=== PATIENT | female | born 1980 | race Caucasian/White ===

== ENCOUNTER 2023-11-28 10:11 | Day surgery (SDC) | payer OTHER, SELFPAY ==
[2023-11-28] MEDS: LACTATED RINGERS 1,000 ML 42 ML IV ×2 (11:35→14:29)
[2023-11-28] MEDS: TRAMADOL 50 MG TABLET PO (11:37)
[2023-11-28 11:48] VITALS: BMI 30.7
--- NOTE | 2023-11-28 11:52 | PM.PREOP ---
Pre-operative Note Interval Note History & Physical reviewed/Exam performed by Physician: Yes Changes to H&P: No
--- NOTE | 2023-11-28 11:53 | PM.OP.1 ---
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 Conservative measures failed to alleviate her condition and she wished to have surgical intervention at this time. We spoke with the risks and potential complications as well as expected outcomes of the proposed procedures. In the preoperative holding area we also reviewed again some options which we had talked about last week in the clinic. After further discussion she desired to not have a takedown of the arthrodesis of the 2nd toe and understands that the flexor tendon transfer would not performed at this time due to difficulty of accessing without these takedowns. Alternative attempts at alignment and strengthening of the toe's plantarflexion will be performed as discussed and she consented, if needed, for a k-wire temporary placement through the toe to be removed in the month following the procedure. Also, use of bandaging, splinting, and therapy techniques are options to help this. She voiced understanding and consent was reviewed once again. No contraindications to the procedure at this time. Surgeon: Ghazala Hsieh Click Yes if Unassisted: No Anesthesia Type: General Operative Notes Closure Type: primary Specimen(s): none sent Prosthetic devices, grafts, tissues, transplants, or devices: 0.054 k-wire Estimated Blood Loss (mL): 20 Blood products transfused: none Procedure in detail: The patient was brought to the operating room and placed on the operating table in the supine position. The tourniquet was placed about the right thigh, well padded, appropriately aligned. After induction of general anesthesia the right foot was prepped and local anesthesia using the recorded injectables was obtained to the the region of the right second toe area. The right foot and ankle were prepped and draped in the usual aseptic manner. The tourniquet was inflated. Incision was made over the dorsal second proximal phalanx extending proximal to the second metatarsophalangeal joint. This was done in a z-type formation at the central aspect and then proximal arm was elongated further proximally. The incision was deepened through subcutaneous tissues being careful to identify and retract all vital neural and vascular structures. All bleeders were cauterized and ligated as necessary. This immediately showed a good deal of scar tissue of the extensor tendon onto the joint capsule and the senior electrical estimator bones. Also there was tightness and scarring at the capsule itself of the metatarsophalangeal joint. I removed two small undissolved sutures in the area and their scar tissue dorsolaterally. I carefully freed the extensor from the tissue it scarred to. Once I did that and released the metatarsophalangeal capsule, the toe appeared to sit into an equal position with the great toe on loading. The foot was irrigated with copious amounts normal sterile saline. When putting more slack into the second digit extensor tendon, it did not significantly change the attitude of the toe and alignment was good when loading without the extensor lengthening, so it was chosen not to do this. Under the aid of mini C-arm, the 0.054 k-wire was placed in the tip of the second toe pulp and using some plantar flexion at the second metatarsophalangeal joint, the wire was driven across the fused proximal interphalangeal joint and into the neck of the second metatarsal. There was no motion at this joint and the wire was not prominent superficially or proximally. On mini-C-arm it showed the wire to be out of the proximal portion of the toe but since this was used more for temporary spanning of the soft tissue, this was ok and safe to use. Excess distal wire was removed after careful bending as it exited the toe, and pin cap was placed. Tourniquet was deflated, a prompt hyperemic response was seen to the foot. The Z-plasty repair was gently brought together using 4-0 Vicryl and along the remainder of the incision for subcutaneous closure. Nylon was used to close the skin. The tip of toe where the wire was exiting was dressed with bacitracin ointment. A lightly compressive dressing was placed on the foot and she was placed in stockinette and postsurgical boot and transferred to the PACU with vital signs stable. Complications: none Post-operative Condition: stable Disposition: PACU Plan for aftercare: Following a period of postoperative monitoring, the patient will be discharged to home on written and oral postoperative instructions including keeping the dressing dry and intact, no weight to front of the surgical foot, and no greater than 50% weight flat centrally to the surgical foot, icing and elevating the foot when seated home. DVT prevention techniques have been reviewed. For the 1st postoperative visit the dressing will be changed and close to the 3rd to 4th postoperative week we will likely remove the wire.
[2023-11-28 12:00] VITALS: BP 132/81; PULSE 92; RESP 17; TEMP 37.2; O2SAT 98
[2023-11-28] MEDS: ACETAMINOPHEN 325 MG TABLET 650 MG PO (12:22)
[2023-11-28] MEDS: BUTALB/APAP/CAFFEINE 50/325/40 TABLET 1 EACH PO (12:22)
[2023-11-28] MEDS: CEFAZOLIN 2 GM/100 ML PREMIX 100 ML IV (12:35)
--- NOTE | 2023-11-28 12:59 | SUR.OPER ---
Supine on padded OR bed, head on pillow, arms secured on padded arm boards at <90 degrees abduction, legs uncrossed, safety belt at waist, tape over blanket over lower left leg, right leg draped free with gel bump under right hip.
[2023-11-28] MEDS: BUPIVACAINE 0.5% (PF) 30 ML VIAL INJ (13:09)
[2023-11-28] MEDS: BACITRACIN OINT 0.9 GM PCKT 1 APPLIC TOP (13:40)
[2023-11-28 14:10] VITALS: BP 131/74; PULSE 82; RESP 12; TEMP 37.4; O2SAT 99
[2023-11-28 14:15] VITALS: BP 128/72; PULSE 74; RESP 16; O2SAT 99
[2023-11-28 14:20] VITALS: BP 129/71; PULSE 75; RESP 14; O2SAT 99
[2023-11-28 14:25] VITALS: BP 133/65; PULSE 79; RESP 16; TEMP 37.4; O2SAT 99
[2023-11-28 14:30] VITALS: BP 134/73; PULSE 74; RESP 12; O2SAT 99
== END 2023-11-28 14:52 | disposition home or self-care (01) ==
PROVIDERS: PCP Physician Assistant Medical; Referring Provider Podiatrist; Visit Provider Podiatrist
PROC: (CPT 28270; principal; 2023-11-28 11:45)
DX: M25.674 Stiffness of right foot, not elsewhere classified (principal); L90.5 Scar conditions and fibrosis of skin; M20.5X1 Other deformities of toe(s) (acquired), right foot
CPT/HCPCS: 28270; 81025; C1713; J0690; J1100; J2250; J2405; J2704; J3010